=== PATIENT | male | born 1980 | race African-American/Black ===

== ENCOUNTER 2017-07-23 20:22 | Emergency (ER) | payer OTHER ==
--- NOTE | 2017-07-23 20:38 | EDM.PDOC ---
ED HPI GENERAL MEDICAL PROBLEM - General Chief Complaint: General Stated Complaint: PT HAS FLU SYMPTOMS Time Seen by Provider: 07/23/17 20:37 Source of Information: Reports: Patient - History of Present Illness INITIAL COMMENTS - FREE TEXT/NARRATIVE: HISTORY AND PHYSICAL: History of present illness: [ Patient presents with cough and sore throat subjective fever with known influenza contact at work, symptoms began today Patient presents as above no current fever nausea vomiting chills sweats on productive cough for 1 day and myalgias no chest pain shortness breath headache dizziness palpitation no bowel or urine symptoms ] Review of systems: As per history of present illness and below otherwise all systems reviewed and negative. Past medical history: As per history of present illness and as reviewed below otherwise noncontributory. Surgical history: As per history of present illness and as reviewed below otherwise noncontributory. Social history: No reported history of drug or alcohol abuse. Family history: As per history of present illness and as reviewed below otherwise noncontributory. Physical exam: HEENT: Atraumatic, normocephalic, pupils reactive, negative for conjunctival pallor or scleral icterus, mucous membranes moist, throat clear, neck supple, nontender, trachea midline. Lungs: Clear to auscultation, breath sounds equal bilaterally, chest nontender. Heart: S1S2, regular, negative for clicks, rubs, or JVD. Abdomen: Soft, nondistended, nontender. Negative for masses or hepatosplenomegaly. Negative for costovertebral tenderness. Pelvis: Stable nontender. Genitourinary: Deferred. Rectal: Deferred. Extremities: Atraumatic, negative for cords or calf pain. Neurovascular unremarkable. Neuro: Awake, alert, oriented. Cranial nerves II through XII unremarkable. Cerebellum unremarkable. Motor and sensory unremarkable throughout. Exam nonfocal. Diagnostics: [Influenza /strep ] Therapeutics: [Azithromycin Tamiflu Pro-air Phenergan with codeine Impression: [Acute pharyngitis/bronchitis Influenza exposure Definitive disposition and diagnosis as appropriate pending reevaluation and review of above. - Related Data Allergies Allergy/AdvReac Type Severity Reaction Status Date / Time No Known Allergies Allergy Verified 07/23/17 20:40 Home Meds: Home Meds . [No Known Home Meds] 07/23/17 [History] ED ROS GENERAL - Review of Systems Review Of Systems: ROS reveals no pertinent complaints other than HPI. ED EXAM, GENERAL - Physical Exam Exam: See Below Course - Vital Signs Last Recorded V/S: Last Vital Signs Temp 99.2 F 07/23/17 20:38 Pulse 113 H 07/23/17 20:38 Resp 12 07/23/17 20:38 BP 141/79 H 07/23/17 20:38 Pulse Ox 98 07/23/17 20:38 - Orders/Labs/Meds Orders: Active Orders 24 hr Category Date Time Status Chest 2V [CR] Stat Exams 07/23/17 21:15 Taken CULTURE STREP A CONFIRMATION [RM] Stat Lab 07/23/17 20:35 Results STREP SCRN A RAPID W CULT CONF [RM] Stat Lab 07/23/17 20:35 Results Departure - Departure Time of Disposition: 22:17 Disposition: Home, Self-Care 01 Condition: Good Clinical Impression: Acute pharyngitis, Bronchitis - Discharge Information Referrals: PCP,None [Primary Care Provider] - Forms: ED Department Discharge Additional Instructions: The following information is given to patients seen in the emergency department who are being discharged to home. This information is to outline your options for follow-up care. We provide all patients seen in our emergency department with a follow-up referral. The need for follow-up, as well as the timing and circumstances, are variable depending upon the specifics of your emergency department visit. If you don't have a primary care physician on staff, we will provide you with a referral. We always advise you to contact your personal physician following an emergency department visit to inform them of the circumstance of the visit and for follow-up with them and/or the need for any referrals to a consulting specialist. The emergency department will also refer you to a specialist when appropriate. This referral assures that you have the opportunity for follow-up care with a specialist. All of these measure are taken in an effort to provide you with optimal care, which includes your follow-up. Under all circumstances we always encourage you to contact your private physician who remains a resource for coordinating your care. When calling for follow-up care, please make the office aware that this follow-up is from your recent emergency room visit. If for any reason you are refused follow-up, please contact the [facility] emergency department at and asked to speak to the emergency department charge nurse. - My Orders Last 24 Hours: My Active Orders 07/23/17 20:35 CULTURE STREP A CONFIRMATION [RM] Stat STREP SCRN A RAPID W CULT CONF [RM] Stat 07/23/17 21:15 Chest 2V [CR] Stat - Assessment/Plan Last 24 Hours: My Active Orders 07/23/17 20:35 CULTURE STREP A CONFIRMATION [RM] Stat STREP SCRN A RAPID W CULT CONF [RM] Stat 07/23/17 21:15 Chest 2V [CR] Stat
--- NOTE | 2017-07-25 15:44 | CR ---
EXAM DATE: 07/23/17 PATIENT'S AGE: 36 Patient: RIVKA CORONADO Facility: [place], [place] Site . Site : [id number] Study: XRay Chest [id number] 10:07:22 PM Ordering Physician: Drea Null Final Report: CHEST 2 VIEWS INDICATION: Cough. Shortness of breath. IMPRESSION: Normal heart size and vascular pattern. Lungs are clear. No pneumothorax or pleural abnormality. Dictated by Chip Rtichie MD @ Jul 23 2017 10:30PM (Electronic Signature) Report Signed by Proxy. ASHLEY
== END 2017-07-23 22:28 | disposition home or self-care (01) ==
LOC: MW.ED 20:22
DX: J40 Bronchitis, not specified as acute or chronic (principal); J02.9 Acute pharyngitis, unspecified; Z20.828 Contact with and (suspected) exposure to other viral communicable diseases
CPT/HCPCS: 71046; 71046-26; 87081; 87804; 87880; 99283